=== PATIENT | male | born 1980 | race Caucasian/White ===

== ENCOUNTER 2023-12-20 11:24 | Emergency (ER) | payer MEDICAID ==
[~2023-12-20] VITALS: Ht 165.1 cm; Wt 75.0 kg
[2023-12-20 11:33] VITALS: O2SAT 100
[2023-12-20 12:50] LABS: BASOPHILS % 0.3 % (0.0-2.0); EOSINOPHILS % 1.7 % (0.0-5.0); HEMATOCRIT. 47.3 % (42.0-52.0); HEMOGLOBIN. 15.6 g/dL (14.0-18.0); LYMPHOCYTES % 37.5 % (20.0-50.0); MEAN CORPUSCULAR HEMOGLOBIN 29.1 pg (28.0-32.0); MEAN CORPUSCULAR HGB CONC 32.9 g/dL (31.0-37.0); MEAN CORPUSCULAR VOLUME 88.4 fL (80.0-94.0); MEAN PLATELET VOLUME 10.6 fl (7.4-10.4); MONOCYTES % 5.7 % (2.0-8.0); NEUTROPHILS % 54.8 % (40.0-76.0); PLATELET 155 x1000/uL (130-400); RED BLOOD CELL COUNT 5.36 mill/uL (4.7-6.1); RED CELL DISTRIBUTION WIDTH 14.1 % (11.6-14.6); WHITE BLOOD COUNT 7.5 x1000/uL (4.5-11.0)
[2023-12-20 13:20] LABS: CHLORIDE 104 mEq/L (98-107); POTASSIUM 4.3 mEq/L (3.5-5.1)
[2023-12-20 13:21] LABS: CARBON DIOXIDE 27 mEq/L (21-32); SODIUM 139 mEq/L (136-145)
[2023-12-20 13:22] LABS: CALCIUM 10.3 mg/dL (8.7-10.4)
[2023-12-20 13:26] LABS: CREATININE 0.7 mg/dL (0.6-1.3); GLUCOSE 69 mg/dL (70-105)
[2023-12-20 13:27] LABS: UREA NITROGEN BLOOD 12 mg/dL (9-23)
[2023-12-20 13:28] LABS: ALANINE AMINOTRANSFERASE 22 IU/L (10-49); ASPARTATE AMINOTRANSFERASE 27 IU/L (<34)
[2023-12-20 13:29] LABS: BILIRUBIN TOTAL 0.7 mg/dL (0.1-1.0); PROTEIN TOTAL 7.3 g/dL (6.0-8.3)
[2023-12-20 13:52] LABS: CLARITY URINE CLEAR (CLEAR); COLOR URINE YELLOW (YELLOW); GLUCOSE URINE NEGATIVE (NEGATIVE); KETONES URINE TRACE (NEGATIVE); LEUKOCYTE ESTERASE URINE NEGATIVE (NEGATIVE); NITRITE URINE NEGATIVE (NEGATIVE); OCCULT BLOOD URINE NEGATIVE (NEGATIVE); PROTEIN URINE NEGATIVE (NEGATIVE)
[2023-12-20 14:19] VITALS: BP 138/74; PULSE 74; RESP 18; TEMP 98.2
== END 2023-12-20 14:25 | disposition home or self-care (01) ==
LOC: ER 11:24
DX: S80.01XA Contusion of right knee, initial encounter (principal); M25.561 Pain in right knee; E11.9 Type 2 diabetes mellitus without complications; I10 Essential (primary) hypertension; X58.XXXA Exposure to other specified factors, initial encounter; Y93.89 Activity, other specified; Y92.89 Other specified places as the place of occurrence of the external cause; Y99.8 Other external cause status
CPT/HCPCS: 36415; 73562; 80053; 81003; 82962; 85025; 93005; 99285